=== PATIENT | female | born 1945 | race Caucasian/White ===

== ENCOUNTER → 2023-04-13 07:24 | Outpatient (REF) | payer MEDICARE, OTHER, SELFPAY ==
[2023-04-13 08:18] LABS: Urine Albumin Negative (Neg - Trace); Urine Bilirubin Negative (Negative); Urine Character Clear (Clear); Urine Color Yellow; Urine Glucose Negative (Negative); Urine Ketone Negative (Negative); Urine Leukocyte Trace (Negative); Urine Nitrite Negative (Negative); Urine Occult Blood Trace (Negative); Urine Urobilinogen Negative (Neg - 1+)
[2023-04-13 08:20] LABS: % Basophils 0.4 % (0-2); % Eosinophils 3.2 % (0-6); % Immature Granulocytes 0.2 % (0-0.5); % Lymphocytes 31.9 % (20.5-51.1); % Monocytes 7.6 % (1.7-9.3); % Neutrophils 56.7 % (42.2-75.2); Absolute Eosinophils 0.2 10^3/uL (0-0.7); Absolute Lymphocytes 1.5 10^3/uL (1.2-3.4); Absolute Monocytes 0.4 10^3/uL (0.1-0.6); Absolute Neutrophils 2.7 10^3/uL (1.4-6.5); Hematocrit 38.9 % (37.0-47.0); Hemoglobin 12.9 g/dL (12.0-16.0); Mean Corp Hgb Conc. 33.2 g/dL (33.0-37.0); Mean Corpuscular Hgb 29.3 pg (27.0-31.0); Mean Corpuscular Volume 88.2 fL (81.0-99.0); Mean Platelet Volume 9.4 fL (7.4-10.4); Nucleated Red Blood Cells % 0 %; Platelet Count 220 10^3/uL (130-400); Red Blood Cell Count 4.41 10^6/uL (4.20-5.40); Red Cell Dist. Width 13.3 % (11.5-14.5); White Blood Cell Count 4.8 10^3/uL (4.8-10.8)
[2023-04-13 08:30] LABS: Urine Bacteria Few (Negative); Urine Squamous Cell 0-2 /LPF (Few)
[2023-04-13 08:31] LABS: Urine Red Blood Cell 0-2 /HPF (0-2); Urine White Cell 0-2 /HPF (0-5)
[2023-04-13 08:48] LABS: ALT (SGPT) 12 U/L (0-35); AST (SGOT) 24 U/L (14-36); Alkaline Phosphatase 75 U/L (38-126); Blood Urea Nitrogen 11 mg/dl (7-17); Calcium 9.7 mg/dl (8.4-10.2); Carbon Dioxide 28 mmol/L (22-30); Chloride 105 mmol/L (98-107); Creatine Phosphokinase 62 U/L (30-135); Glucose 94 mg/dl (70-99); HDL Cholesterol 63 mg/dl; LDL Cholesterol, Calculated 123 mg/dl; Potassium 4.1 mmol/L (3.5-5.1); Sodium 137 mmol/L (135-145); Total Bilirubin 0.8 mg/dl (0.2-1.3); Total Cholesterol 213 mg/dl (50-199); Total Protein 6.5 g/dl (6.3-8.2); Triglyceride 139 mg/dl (10-149); Very Low Density Lipoprotein 27 mg/dl (0-30); eGFR > 60.00
[2023-04-13 09:00] LABS: Vitamin D, 25-OH*** 32.4 ng/mL (30-80)
[2023-04-13 09:14] LABS: TSH Reflex To Free T4 1.77 uIU/ml (0.47-4.68)
[2023-04-14 21:57] LABS: Aldolase 3.1 U/L (1.2-7.6)
== END ==
LOC: REG 07:24
PROVIDERS: ATTENDING PHYSICIAN Internal Medicine Rheumatology; FAMILY PHYSICIAN Nurse Practitioner Primary Care
DX: I25.10 Atherosclerotic heart disease of native coronary artery without angina pectoris (principal); I10 Essential (primary) hypertension; E55.9 Vitamin D deficiency, unspecified; Z00.00 Encounter for general adult medical examination without abnormal findings; E03.8 Other specified hypothyroidism; J47.9 Bronchiectasis, uncomplicated; J84.9 Interstitial pulmonary disease, unspecified; M19.041 Primary osteoarthritis, right hand; M19.042 Primary osteoarthritis, left hand; M35.9 Systemic involvement of connective tissue, unspecified; M51.37 Other intervertebral disc degeneration, lumbosacral region; M85.80 Other specified disorders of bone density and structure, unspecified site; R76.8 Other specified abnormal immunological findings in serum; Z68.27 Body mass index [BMI] 27.0-27.9, adult; Z79.899 Other long term (current) drug therapy
CPT/HCPCS: 36415; 80053; 80061; 81003; 81015; 82085; 82306; 82550; 84443; 85025; 86140

== ENCOUNTER → 2023-05-11 15:08 | Outpatient (REF) | payer MEDICARE, OTHER, SELFPAY ==
[2023-05-11 16:14] LABS: Urine Albumin Negative (Neg - Trace); Urine Bilirubin Negative (Negative); Urine Character Clear (Clear); Urine Color Yellow; Urine Glucose Negative (Negative); Urine Ketone Negative (Negative); Urine Leukocyte 2+ (Negative); Urine Nitrite Negative (Negative); Urine Occult Blood 1+ (Negative); Urine Specific Gravity 1.015 (<1.030); Urine Urobilinogen Negative (Neg - 1+)
[2023-05-11 16:23] LABS: Urine Mucus Many; Urine Squamous Cell 0-2 /LPF (Few)
[2023-05-11 16:25] LABS: Urine Bacteria Few (Negative)
== END ==
LOC: REG 15:08
PROVIDERS: ATTENDING PHYSICIAN Internal Medicine Rheumatology; FAMILY PHYSICIAN Internal Medicine
DX: R82.90 Unspecified abnormal findings in urine (principal)
CPT/HCPCS: 81003; 81015; 87086

== ENCOUNTER → 2023-06-23 14:12 | Outpatient (REF) | payer MEDICARE, OTHER, SELFPAY | LOC: HWRAD 14:12 | PROVIDERS: ATTENDING PHYSICIAN Advanced Practice Midwife; FAMILY PHYSICIAN Internal Medicine | DX: R10.2 Pelvic and perineal pain (principal); N95.0 Postmenopausal bleeding | CPT/HCPCS: 76830; 76856 ==

== ENCOUNTER → 2023-07-26 08:01 | Outpatient (REF) | payer MEDICARE, OTHER, SELFPAY ==
[2023-07-26 08:55] LABS: % Basophils 0.4 % (0-2); % Eosinophils 3.2 % (0-6); % Immature Granulocytes 0.2 % (0-0.5); % Lymphocytes 32.3 % (20.5-51.1); % Monocytes 8.9 % (1.7-9.3); Absolute Eosinophils 0.2 10^3/uL (0-0.7); Absolute Lymphocytes 1.5 10^3/uL (1.2-3.4); Absolute Monocytes 0.4 10^3/uL (0.1-0.6); Absolute Neutrophils 2.6 10^3/uL (1.4-6.5); Hematocrit 39.8 % (37.0-47.0); Hemoglobin 12.9 g/dL (12.0-16.0); Mean Corp Hgb Conc. 32.4 g/dL (33.0-37.0); Mean Corpuscular Hgb 28.7 pg (27.0-31.0); Mean Corpuscular Volume 88.6 fL (81.0-99.0); Mean Platelet Volume 9.5 fL (7.4-10.4); Nucleated Red Blood Cells % 0 %; Platelet Count 223 10^3/uL (130-400); Red Blood Cell Count 4.49 10^6/uL (4.20-5.40); Red Cell Dist. Width 13.7 % (11.5-14.5); White Blood Cell Count 4.7 10^3/uL (4.8-10.8)
[2023-07-26 09:25] LABS: Blood Urea Nitrogen 20 mg/dl (7-17); Carbon Dioxide 28 mmol/L (22-30); eGFR > 60.00
[2023-07-26 09:36] LABS: Calcium 9.8 mg/dl (8.4-10.2); Chloride 103 mmol/L (98-107); Glucose 92 mg/dl (70-99); Sodium 138 mmol/L (135-145)
== END ==
LOC: SDSPAT 08:01
PROVIDERS: ATTENDING PHYSICIAN Obstetrics & Gynecology; FAMILY PHYSICIAN Internal Medicine; OTHER PHYSICIAN Internal Medicine Cardiovascular Disease
DX: Z01.818 Encounter for other preprocedural examination (principal)
CPT/HCPCS: 36415; 80048; 85025

== ENCOUNTER 2023-08-05 10:17 | Day surgery (SDC) | payer MEDICARE, OTHER, SELFPAY ==
[2023-07-26 08:11] VITALS: BMI 27.9
[2023-08-05] VITALS (8 sets, daily range): BP systolic 116–138; BP diastolic 60–80; BMI 27.9
== END 2023-08-05 14:50 | disposition home or self-care (01) ==
LOC: SDS 10:17
PROVIDERS: ATTENDING PHYSICIAN Obstetrics & Gynecology; FAMILY PHYSICIAN Internal Medicine
DX: C54.1 Malignant neoplasm of endometrium (principal); N95.0 Postmenopausal bleeding; N84.0 Polyp of corpus uteri
CPT/HCPCS: 58558; 88305; 86850; 86900; 86901; 88342; 88360

== ENCOUNTER → 2023-09-14 07:37 | Outpatient (REF) | payer MEDICARE, OTHER, SELFPAY | LOC: HWRAD 07:37 | PROVIDERS: ATTENDING PHYSICIAN Nurse Practitioner Primary Care | DX: M85.89 Other specified disorders of bone density and structure, multiple sites (principal); Z12.31 Encounter for screening mammogram for malignant neoplasm of breast | CPT/HCPCS: 77063; 77067; 77080 ==

== ENCOUNTER → 2023-09-15 07:56 | Outpatient (REF) | payer MEDICARE, OTHER, SELFPAY | LOC: RAD 07:56 | PROVIDERS: ATTENDING PHYSICIAN Obstetrics & Gynecology Gynecologic Oncology; FAMILY PHYSICIAN Internal Medicine; REFERRING PHYSICIAN Internal Medicine Cardiovascular Disease | DX: C54.1 Malignant neoplasm of endometrium (principal) | CPT/HCPCS: 36415; 71260; 74177; 86850; 86900; 86901; 93005; Q9967 ==

== ENCOUNTER 2023-09-28 06:23 | Day surgery (SDC) | payer MEDICARE, OTHER, SELFPAY ==
[2023-09-15 07:40] VITALS: BMI 28.9
[2023-09-28] VITALS (11 sets, daily range): BP systolic 117–143; BP diastolic 63–81; BMI 28.9
[2023-09-28] MEDS: NORMOSOL-R 1000 IV (08:35)
[2023-09-28] MEDS: TYLENOL 1000 MG PO (08:46)
[2023-09-28] MEDS: NEURONTIN 300 MG PO (08:46)
[2023-09-28] MEDS: CELEBREX 200 MG PO (08:46)
[2023-09-28] MEDS: HEPARIN 5000 UNITS SC (08:46)
[2023-09-28] MEDS: TYLENOL 650 MG PO (13:52)
--- NOTE | 2023-09-28 14:02 | OR.RPT ---
Operative Report
Operative Report
Date of surgery: September 28, 2023
Preoperative diagnosis: Grade 1 endometrioid adenocarcinoma of uterus
Postoperative diagnosis: Grade 1 endometrioid adenocarcinoma of uterus
Procedure:
Robotic assisted total laparoscopic hysterectomy, bilateral salpingo-oophorectomy [id number]
Injection of cervix with ICG dye, bilateral, for mapping and identification of pelvic sentinel lymph nodes 54278-84
Robotic assisted laparoscopic excision of pelvic sentinel lymph node 11459-00
Surgeon: Serg Ley MD
Assist: Federico Briceno PA-C, CORINE Steven
Anesthesia: General
EBL: 100 cc
Complications: None
Procedure in detail. This patient was taken to the operating room for definitive management of recently identified endometrial cancer after presenting with postmenopausal bleeding. she was placed in supine position general anesthesia was
administered she was intubated without any difficulty she was placed on lithotomy position using yellowfin stirrups arms were wrapped and foams and placed along the sides eyes were taped and OG tube was placed. The patient was prepped on the
abdomen perineum and vagina on upper thighs and she was draped. Timeout procedure was carried out, she received combination of Ancef and Flagyl for prophylaxis and had received heparin for prophylaxis previously.
Cleveland catheter was placed under sterile conditions into the bladder. Anterior lip of the cervix was grasped with single-tooth tenaculum. Cervix was dilated, uterine cavity was approximately 8 cm. the cervix was injected with ICG dye total of 4 cc
split at 3 and 9:00 positions at 5 mm and 10 mm stations.Uterine manipulator clerical proofreader type. 3.0 cm MICHAEL ring was placed in the uterine cavity for manipulation. Attention was turned abdominally, Veress needle was placed in the umbilicus and
insufflation of the abdomen with CO2 gas was performed up to pressure of 15 mmHg. 8 mm robotic ports were placed 25 cm cephalad to the symphysis pubis and under direct visualization using the camera additional 8 mm robotic ports were placed right
and left upper quadrants of the abdomen and right and left lateral abdomen. Some insufflation in the preperitoneal space was realized but this began to dissipate as we begin to do some additional work
Tap block was performed by injecting combination of 0.5% ropivacaine 30 cc with sterile saline 30 cc and injected 2 fingerbreadths below lateral aspect of right and left costal margin just above the peritoneum below the muscle and also 10 additional
cc at the right mid abdomen and left mid abdomen.
Next pelvic washings were collected, Right and left round ligaments were sealed and divided anterior and posterior leaves of the broad ligament were dissected open. Both retroperitoneal spaces on the right and left sides were opened, the course
of the ureter was identified bilaterally, a window was created between ureter and IP ligament and the IP ligaments were sealed 3 times and divided. Tubes and ovaries were left attached to the uterus. On the left side I identified a proximal left
internal iliac artery lymph node which was safely removed.. On the right side 2 lymph nodes along the obturator fossa as well as proximal internal iliac artery were identified and removed safely.. Bladder flap was sharply developed and advanced
below the cervical vaginal junction. Uterine arteries were skeletonized and were sealed with vessel sealer and divided. Circumferential incision was made around the MICHAEL ring until the uterus was completely detached. The uterus and cervix as well
as a bag containing the appendix was removed through the vagina. The vaginal cuff was closed with 0 Vicryl suture ligature in a [id number] fashion at both apices incorporating uterosacral ligaments. V-Loc suture was used to close the
remainder of the cuff in 2 layers. All pedicles were examined and there was no evidence of bleeding. Pneumoperitoneum was released. All ports were removed. The skin closure at the ports were completed with 4-0 Monocryl. Skin glue was applied
to all incisions. All incisions were injected with bupivacaine, ropivacaine was injected similar to a tap block on right and left side below the costal margins. Patient was awakened extubated and returned back to recovery room stable awake and
extubated condition. Counts of laps instruments and needle was correct x 2. I was present and scrubbed for entire procedure as dictated above. Also the vaginal cuff occluder as well as Cleveland catheter was removed at the completion of the procedure
Disposition: To PACU, stable awake extubated
== END 2023-09-28 17:18 | disposition home or self-care (01) ==
LOC: SDS 06:23
PROVIDERS: ATTENDING PHYSICIAN Obstetrics & Gynecology Gynecologic Oncology; FAMILY PHYSICIAN Internal Medicine
DX: C54.1 Malignant neoplasm of endometrium (principal); D25.9 Leiomyoma of uterus, unspecified
CPT/HCPCS: 58571; 38525; 38900; 88307; 88309; 88311; 88112; 88342

== ENCOUNTER → 2023-11-15 06:59 | Outpatient (REF) | payer MEDICARE, OTHER, SELFPAY | LOC: RAD 06:59 | PROVIDERS: ATTENDING PHYSICIAN Internal Medicine Critical Care Medicine; FAMILY PHYSICIAN Nurse Practitioner Primary Care; OTHER PHYSICIAN Internal Medicine Cardiovascular Disease; REFERRING PHYSICIAN Internal Medicine Rheumatology | DX: J84.9 Interstitial pulmonary disease, unspecified (principal); J47.9 Bronchiectasis, uncomplicated | CPT/HCPCS: 71250 ==

== ENCOUNTER → 2024-05-10 06:20 | Outpatient (REF) | payer MEDICARE, OTHER, SELFPAY ==
[2024-05-10 07:41] LABS: Urine Albumin Negative (Neg - Trace); Urine Bilirubin Negative (Negative); Urine Character Clear (Clear); Urine Color Yellow; Urine Glucose Negative (Negative); Urine Ketone Negative (Negative); Urine Leukocyte 1+ (Negative); Urine Nitrite Negative (Negative); Urine Occult Blood 1+ (Negative); Urine Urobilinogen Negative (Neg - 1+); Urine pH 6.5 (5.0-9.0)
[2024-05-10 07:52] LABS: % Basophils 0.3 % (0-2); % Eosinophils 3.5 % (0-6); % Immature Granulocytes 0.3 % (0-0.5); % Monocytes 7.9 % (1.7-9.3); Absolute Eosinophils 0.2 10^3/uL (0-0.7); Absolute Lymphocytes 1.7 10^3/uL (1.2-3.4); Absolute Monocytes 0.5 10^3/uL (0.1-0.6); Absolute Neutrophils 3.5 10^3/uL (1.4-6.5); Hematocrit 39.2 % (37.0-47.0); Hemoglobin 13.2 g/dL (12.0-16.0); Mean Corp Hgb Conc. 33.7 g/dL (33.0-37.0); Mean Corpuscular Hgb 29.5 pg (27.0-31.0); Mean Corpuscular Volume 87.7 fL (81.0-99.0); Mean Platelet Volume 9.6 fL (7.4-10.4); Nucleated Red Blood Cells % 0 %; Platelet Count 229 10^3/uL (130-400); Red Blood Cell Count 4.47 10^6/uL (4.20-5.40); Red Cell Dist. Width 13.9 % (11.5-14.5); White Blood Cell Count 5.9 10^3/uL (4.8-10.8)
[2024-05-10 08:16] LABS: ALT (SGPT) 15 U/L (0-35); AST (SGOT) 25 U/L (14-36); Albumin 4.7 g/dl (3.5-5.0); Alkaline Phosphatase 81 U/L (38-126); Blood Urea Nitrogen 15 mg/dl (7-17); Calcium 10.3 mg/dl (8.4-10.2); Carbon Dioxide 31 mmol/L (22-30); Chloride 99 mmol/L (98-107); Glucose 96 mg/dl (70-99); HDL Cholesterol 52 mg/dl; LDL Cholesterol, Calculated 130 mg/dl; Sodium 139 mmol/L (135-145); Total Bilirubin 0.8 mg/dl (0.2-1.3); Total Cholesterol 222 mg/dl (50-199); Triglyceride 201 mg/dl (10-149); Very Low Density Lipoprotein 40 mg/dl (0-30); eGFR > 60.00
[2024-05-10 08:33] LABS: Urine Amorphous Seen; Urine Red Blood Cell 0-2 /HPF (0-2)
[2024-05-10 08:34] LABS: Urine White Cell 0-2 /HPF (0-5)
[2024-05-10 08:55] LABS: Vitamin D, 25-OH*** 34.5 ng/mL (30-80)
[2024-05-10 09:09] LABS: TSH Reflex To Free T4 2.38 uIU/ml (0.47-4.68)
[2024-05-10 09:20] LABS: Creatine Phosphokinase 62 U/L (30-135)
[2024-05-11 04:53] LABS: IgA 148 mg/dl (70-400)
[2024-05-11 10:11] LABS: Rheumatoid Agglutinin Less Than 10 IU (<10 IU)
[2024-05-12 10:04] LABS: CCP Antibody IgG/IgA 1 Units (0-19)
== END ==
LOC: RAD 06:20
PROVIDERS: ATTENDING PHYSICIAN Internal Medicine Rheumatology; FAMILY PHYSICIAN Nurse Practitioner Primary Care; OTHER PHYSICIAN Dermatology; OTHER PHYSICIAN Internal Medicine Cardiovascular Disease; OTHER PHYSICIAN Internal Medicine Critical Care Medicine; REFERRING PHYSICIAN Internal Medicine
DX: E78.2 Mixed hyperlipidemia (principal); K21.9 Gastro-esophageal reflux disease without esophagitis; M85.89 Other specified disorders of bone density and structure, multiple sites; E55.9 Vitamin D deficiency, unspecified; Z00.00 Encounter for general adult medical examination without abnormal findings; J47.9 Bronchiectasis, uncomplicated; J84.9 Interstitial pulmonary disease, unspecified; M19.041 Primary osteoarthritis, right hand; M19.042 Primary osteoarthritis, left hand; M35.9 Systemic involvement of connective tissue, unspecified; M54.50 Low back pain, unspecified; M79.641 Pain in right hand; M79.642 Pain in left hand; M85.80 Other specified disorders of bone density and structure, unspecified site; R76.8 Other specified abnormal immunological findings in serum; Z68.30 Body mass index [BMI] 30.0-30.9, adult; Z79.899 Other long term (current) drug therapy
CPT/HCPCS: 36415; 72100; 73130; 80053; 80061; 81003; 81015; 82085; 82306; 82550; 82784; 84443; 84550; 85025; 86140; 86200; 86430

== ENCOUNTER → 2024-05-16 08:45 | Outpatient (REF) | payer MEDICARE, OTHER, SELFPAY | LOC: RAD 08:45 | PROVIDERS: ATTENDING PHYSICIAN Internal Medicine Critical Care Medicine; FAMILY PHYSICIAN Nurse Practitioner Primary Care; OTHER PHYSICIAN Dermatology; OTHER PHYSICIAN Internal Medicine Cardiovascular Disease; OTHER PHYSICIAN Internal Medicine Rheumatology; REFERRING PHYSICIAN Obstetrics & Gynecology Gynecologic Oncology | DX: R91.1 Solitary pulmonary nodule (principal); C54.1 Malignant neoplasm of endometrium; N39.0 Urinary tract infection, site not specified; Z71.9 Counseling, unspecified; R91.8 Other nonspecific abnormal finding of lung field | CPT/HCPCS: 71250 ==

== ENCOUNTER → 2024-08-26 10:25 | Outpatient (REF) | payer MEDICARE, OTHER, SELFPAY ==
[2024-08-26 11:42] LABS: Urine Albumin Negative (Neg - Trace); Urine Bilirubin Negative (Negative); Urine Character Clear (Clear); Urine Color Yellow; Urine Glucose Negative (Negative); Urine Ketone Negative (Negative); Urine Leukocyte 1+ (Negative); Urine Nitrite Negative (Negative); Urine Occult Blood 1+ (Negative); Urine Specific Gravity 1.015 (<1.030); Urine Urobilinogen Negative (Neg - 1+)
[2024-08-26 12:23] LABS: Urine Mucus Few
[2024-08-26 12:24] LABS: Urine Bacteria Few (Negative)
== END ==
LOC: REG 10:25
PROVIDERS: ATTENDING PHYSICIAN Physician Assistant; FAMILY PHYSICIAN Internal Medicine
DX: R82.90 Unspecified abnormal findings in urine (principal)
CPT/HCPCS: 36415; 81003; 81015

== ENCOUNTER → 2024-09-05 11:26 | Outpatient (REF) | payer MEDICARE, OTHER, SELFPAY ==
[2024-09-05 14:01] LABS: Urine Character Clear (Clear)
[2024-09-05 14:33] LABS: Urine Red Blood Cell 0-2 /HPF (0-2); Urine White Cell 0-2 /HPF (0-5)
== END ==
LOC: REG 11:26
PROVIDERS: ATTENDING PHYSICIAN Internal Medicine Rheumatology; FAMILY PHYSICIAN Internal Medicine
DX: N39.0 Urinary tract infection, site not specified (principal)
CPT/HCPCS: 81003; 81015; 87086

== ENCOUNTER → 2024-09-14 08:07 | Outpatient (REF) | payer MEDICARE, OTHER, SELFPAY ==
[2024-09-14 09:46] LABS: Hematocrit 38.7 % (37.0-47.0); Hemoglobin 13.1 g/dL (12.0-16.0); Mean Corp Hgb Conc. 33.9 g/dL (33.0-37.0); Mean Corpuscular Volume 86.0 fL (81.0-99.0); Nucleated Red Blood Cells % 0 %; Platelet Count 233 10^3/uL (130-400); Red Cell Dist. Width 13.8 % (11.5-14.5)
[2024-09-14 10:21] LABS: ALT (SGPT) 11 U/L (0-35); AST (SGOT) 21 U/L (14-36); Albumin 4.4 g/dl (3.5-5.0); Alkaline Phosphatase 74 U/L (38-126); Blood Urea Nitrogen 14 mg/dl (7-17); Calcium 9.7 mg/dl (8.4-10.2); Carbon Dioxide 31 mmol/L (22-30); Chloride 103 mmol/L (98-107); Glucose 98 mg/dl (70-99); Potassium 3.4 mmol/L (3.5-5.1); Sodium 139 mmol/L (135-145); Total Protein 7.0 g/dl (6.3-8.2); eGFR > 60.00
[2024-09-14 10:26] LABS: C-Reactive Protein < 5.00 mg/L (0.0-10.00)
== END ==
LOC: HWWDC 08:07
PROVIDERS: ATTENDING PHYSICIAN Physician Assistant; FAMILY PHYSICIAN Nurse Practitioner Primary Care
DX: Z12.31 Encounter for screening mammogram for malignant neoplasm of breast (principal); J84.9 Interstitial pulmonary disease, unspecified; R76.8 Other specified abnormal immunological findings in serum
CPT/HCPCS: 36415; 77063; 77067; 80053; 82550; 85025; 85652; 86140

== ENCOUNTER → 2024-12-21 06:47 | Outpatient (REF) | payer MEDICARE, OTHER, SELFPAY ==
[2024-12-21 07:34] LABS: Hematocrit 38.4 % (37.0-47.0); Hemoglobin 12.5 g/dL (12.0-16.0); Mean Corp Hgb Conc. 32.6 g/dL (33.0-37.0); Mean Corpuscular Volume 85.3 fL (81.0-99.0); Nucleated Red Blood Cells % 0 %; Platelet Count 236 10^3/uL (130-400); Red Cell Dist. Width 13.7 % (11.5-14.5)
[2024-12-21 08:14] LABS: ALT (SGPT) 12 U/L (0-35); AST (SGOT) 21 U/L (14-36); Albumin 4.2 g/dl (3.5-5.0); Alkaline Phosphatase 70 U/L (38-126); Blood Urea Nitrogen 15 mg/dl (7-17); Calcium 9.9 mg/dl (8.4-10.2); Carbon Dioxide 30 mmol/L (22-30); Chloride 105 mmol/L (98-107); Glucose 94 mg/dl (70-99); Potassium 4.0 mmol/L (3.5-5.1); Sodium 140 mmol/L (135-145); Total Protein 6.7 g/dl (6.3-8.2); eGFR > 60.00
[2024-12-21 08:18] LABS: ALT (SGPT) 12 U/L (0-35); AST (SGOT) 20 U/L (14-36); Albumin 4.1 g/dl (3.5-5.0); Alkaline Phosphatase 71 U/L (38-126); Blood Urea Nitrogen 14 mg/dl (7-17); Calcium 9.8 mg/dl (8.4-10.2); Carbon Dioxide 28 mmol/L (22-30); Chloride 105 mmol/L (98-107); Glucose 95 mg/dl (70-99); HDL Cholesterol 55 mg/dl; LDL Cholesterol, Calculated 97 mg/dl; Potassium 3.9 mmol/L (3.5-5.1); Sodium 140 mmol/L (135-145); Total Protein 6.7 g/dl (6.3-8.2); Very Low Density Lipoprotein 25 mg/dl (0-30); eGFR > 60.00
[2024-12-21 08:21] LABS: C-Reactive Protein 10.00 mg/L (0.0-10.00)
== END ==
LOC: REG 06:47
PROVIDERS: ATTENDING PHYSICIAN Internal Medicine Cardiovascular Disease; FAMILY PHYSICIAN Internal Medicine; OTHER PHYSICIAN Internal Medicine Rheumatology
DX: E78.5 Hyperlipidemia, unspecified (principal); R79.89 Other specified abnormal findings of blood chemistry; J47.9 Bronchiectasis, uncomplicated; J84.9 Interstitial pulmonary disease, unspecified; M19.041 Primary osteoarthritis, right hand; M19.042 Primary osteoarthritis, left hand; M35.9 Systemic involvement of connective tissue, unspecified; M51.370 Other intervertebral disc degeneration, lumbosacral region with discogenic back pain only; M85.80 Other specified disorders of bone density and structure, unspecified site; R82.90 Unspecified abnormal findings in urine; Z68.27 Body mass index [BMI] 27.0-27.9, adult; Z79.899 Other long term (current) drug therapy; R76.89 Other specified abnormal immunological findings in serum
CPT/HCPCS: 36415; 80053; 80061; 82085; 82550; 85025; 86140